=== PATIENT | female | born 1980 | race African-American/Black ===

== ENCOUNTER 2020-07-22 20:42 | Emergency (ER) | payer OTHER ==
[~2020-07-22] VITALS: Ht 157.5 cm; Wt 72.0 kg
[2020-07-22] MEDS ORDERED: IBUPROFEN 600MG TABLET PO ONE (21:30)
[2020-07-22] MEDS ORDERED: LIDOCAINE HCL/PF 1% 10 MG/ML 5ML VIAL IJ ONE ×2 (21:30)
[2020-07-22] MEDS ORDERED: TETANUS, DIPHTHERIA, PERTUSSIS VAC/PF 0.5ML (>7YR OLD) IM ONE (21:30)
[2020-07-22 21:32] VITALS: BP 123/92
== END 2020-07-22 22:27 | disposition home or self-care (01) ==
LOC: ER 20:42
DX: S61.011A Laceration without foreign body of right thumb without damage to nail, initial encounter (principal); S61.214A Laceration without foreign body of right ring finger without damage to nail, initial encounter; W26.8XXA Contact with other sharp object(s), not elsewhere classified, initial encounter; Y93.89 Activity, other specified; Y92.018 Other place in single-family (private) house as the place of occurrence of the external cause
CPT/HCPCS: 12001; 90471; 90715; 99283; J3490

== ENCOUNTER 2020-08-23 09:13 | Emergency (ER) | payer OTHER ==
[~2020-08-23] VITALS: Ht 157.5 cm; Wt 73.0 kg
[2020-08-23 10:00] VITALS: BP 119/78
== END 2020-08-23 10:00 | disposition home or self-care (01) ==
LOC: ER 09:13
DX: Z48.02 Encounter for removal of sutures (principal); R03.0 Elevated blood-pressure reading, without diagnosis of hypertension
CPT/HCPCS: 99281